=== PATIENT | female | born 1995 | race Caucasian/White ===

== ENCOUNTER 2019-01-26 22:40 | Emergency (ER) | payer SELFPAY ==
[~2019-01-26] VITALS: Ht 177.8 cm; Wt 68.0 kg
[2019-01-26] MEDS ORDERED: FAMOTIDINE 20 MG (PEPCID) TABLET PO STA (23:02)
--- NOTE | 2019-01-26 23:07 | ED Abdominal Pain ---
General Stated Complaint: SEVERE LOWER STOMACH PAIN Source of Information: Patient, Family Exam Limitations: No Limitations History of Present Illness Date Seen by Provider: Jan 26, 2019 Time Seen by Provider: 22:53 Initial Comments Patient presents to ER by private conveyance with chief complaint she's having severe lower abdominal pain right more than left started today around 4:00 in the afternoon after she ate ribs and potato salad. She said the pain started after she went to go to the bathroom immediately thereafter and had a bowel movement. She's not having any dysuria or burning. No discharge. She has nausea but no vomiting. No fevers or chills but she said her dad thought she felt feverish earlier when he touched her forehead. She has no recent history of trauma no history of surgeries or abdominal problems. No IBS or IBD. She says her stool was normal, formed. She has not taken anything for the pain or antacids. Allergies and Home Medications Allergies Coded Allergies: No Known Drug Allergies (Unverified , 01/26/19) Patient Home Medication List Home Medication List Reviewed: Yes Review of Systems Review of Systems Constitutional: No chills, No fever; malaise EENTM: No Blurred Vision, No Double Vision Respiratory: Denies Cough, Denies Shortness of Air Cardiovascular: Denies Chest Pain, Denies Edema Gastrointestinal: See HPI, Abdominal Pain, Nausea, Poor Fluid Intake, Vomiting Past [id number] Hx Patient Social History Alcohol Use: Denies Use Recreational Drug Use: No Smoking Status: Never a Smoker Recent Foreign Travel: No Contact w/Someone Who Travel: No Physical Exam Vital Signs Vital Signs - First Documented 01/26/19 22:45 Temp 98.2 Pulse 112 Resp 18 B/P (MAP) 122/84 (97) Pulse Ox 100 O2 Delivery Room Air Capillary Refill : Height/Weight/BMI Height: '" Weight: lbs. oz. kg; BMI Method: General Appearance: WD/WN, mild distress HEENT: PERRL/EOMI, pharynx normal Neck: non-tender, full range of motion Respiratory: lungs clear, normal breath sounds, no respiratory distress, no accessory muscle use Cardiovascular: normal peripheral pulses, regular rate, rhythm Peripheral Pulses: 2+ Dorsalis Pedis (R), 2+ Left Dors-Pedis (L), 2+ Radial Pulses (R), 2+ Radial Pulses (L) Gastrointestinal: normal bowel sounds (quiescent), tenderness (right lower quadrant and suprapubic), other (no rebound tenderness over McBurney's point nor Rovsing sign or psoas signs or any other mesenteric signs) Extremities: non-tender, normal inspection, normal capillary refill Progress/Results/Core Measures Results/Orders Lab Results Laboratory Tests Test 01/26/19 22:45 01/26/19 23:05 Range/Units Urine Color YELLOW Urine Clarity SL CLOUDY Urine pH 5.5 5-9 Urine Specific [place] >=1.030 1.016-1.022 Urine Protein NEGATIVE NEGATIVE Urine Glucose (UA) NEGATIVE NEGATIVE Urine Ketones TRACE H NEGATIVE Urine Nitrite NEGATIVE NEGATIVE Urine Bilirubin NEGATIVE NEGATIVE Urine Urobilinogen 1.0 NORMAL MG/DL Urine Leukocyte Esterase TRACE H NEGATIVE Urine RBC (Auto) 2+ H NEGATIVE Urine RBC 10-25 H /HPF Urine WBC 5-10 H /HPF Urine Squamous Epithelial Cells 25-50 H /HPF Urine Crystals NONE /LPF Urine Bacteria MODERATE H /HPF Urine Casts NONE /LPF Urine Mucus LARGE H /LPF Urine Culture Indicated YES White Blood Count 7.3 4.3-11.0 10^3/uL Red Blood Count 4.62 4.35-5.85 10^6/uL Hemoglobin 14.3 11.5-16.0 G/DL Hematocrit 43 35-52 % Mean Corpuscular Volume 93 80-99 FL Mean Corpuscular Hemoglobin 31 25-34 PG Mean Corpuscular Hemoglobin Concent 33 32-36 G/DL Red Cell Distribution Width 12.9 10.0-14.5 % Platelet Count 193 130-400 10^3/uL Mean Platelet Volume 10.9 H 7.4-10.4 FL Neutrophils (%) (Auto) 72 42-75 % Lymphocytes (%) (Auto) 15 12-44 % Monocytes (%) (Auto) 12 0-12 % Eosinophils (%) (Auto) 1 0-10 % Basophils (%) (Auto) 0 0-10 % Neutrophils # (Auto) 5.2 1.8-7.8 X 10^3 Lymphocytes # (Auto) 1.1 1.0-4.0 X 10^3 Monocytes # (Auto) 0.9 0.0-1.0 X 10^3 Eosinophils # (Auto) 0.0 0.0-0.3 10^3/uL Basophils # (Auto) 0.0 0.0-0.1 10^3/uL Sodium Level 139 135-145 MMOL/L Potassium Level 4.7 3.6-5.0 MMOL/L Chloride Level 98 98-107 MMOL/L Carbon Dioxide Level 23 21-32 MMOL/L Anion Gap 18 H 5-14 MMOL/L Blood Urea Nitrogen 12 7-18 MG/DL Creatinine 0.79 0.60-1.30 MG/DL Estimat Glomerular Filtration Rate > 60 BUN/Creatinine Ratio 15 Glucose Level 103 70-105 MG/DL Calcium Level 9.5 8.5-10.1 MG/DL Corrected Calcium 9.3 8.5-10.1 MG/DL Total Bilirubin 0.6 0.1-1.0 MG/DL Aspartate Amino Transf (AST/SGOT) 39 H 5-34 U/L Alanine Aminotransferase (ALT/SGPT) 32 0-55 U/L Alkaline Phosphatase 76 40-136 U/L Total Protein 7.6 6.4-8.2 GM/DL Albumin 4.2 3.2-4.5 GM/DL Lipase 28 8-78 U/L My Orders Orders - TIM LEBLANC Ua Culture If Indicated (01/26/19 22:50) Urine Bedside (01/26/19 22:50) Cbc With Automated Diff (01/26/19 23:02) Comprehensive Metabolic Panel (01/26/19 23:02) Lipase (01/26/19 23:02) Ondansetron Injection (Zofran Injectio (01/26/19 23:15) Lidocaine 2% Viscous 15 Ml (Xylocaine Vi (01/26/19 23:15) Famotidine Tablet (Pepcid Tablet) (01/26/19 23:02) Antacid Suspension (Mylanta Suspension (01/26/19 23:15) Ed Iv/Invasive Line Start (01/26/19 23:21) Lactated Ringers (Lr 1000 Ml Iv Solution (01/26/19 23:21) Ct Abd/Pelv W (Appendicitis) (01/26/19 23:21) Ketorolac Injection (Toradol Injection) (01/26/19 23:30) Famotidine Injection (Pepcid Injection) (01/26/19 23:30) Iohexol Injection (Omnipaque 350 Mg/Ml 1 (01/26/19 23:30) Received Contrast (Hold Metformin- Contr (01/26/19 23:30) Sodium Chloride Flush (Catheter Flush Sy (01/26/19 23:30) Ns (Ivpb) (Sodium Chloride 0.9% Ivpb Bag (01/26/19 23:30) Urine Culture (01/26/19 22:45) Medications Given in ED Current Medications Medications Dose Ordered Sig/Dustin Route Start Time Stop Time Status Last Admin Dose Admin Al Hydrox/Mg Hydrox/Simethicone 30 ml ONCE ONCE PO 01/26/19 23:15 01/26/19 23:16 DC 01/26/19 23:15 30 ML Iohexol 100 ml ONCE ONCE IV 01/26/19 23:30 01/26/19 23:31 DC 01/26/19 23:41 100 ML Ketorolac Tromethamine 30 mg ONCE ONCE IVP 01/26/19 23:30 01/26/19 23:31 DC 01/26/19 23:30 30 MG Lactated Ringer's 1,000 ml @ 0 mls/hr Q0M ONCE IV 01/26/19 23:21 01/26/19 23:23 DC 01/26/19 23:30 999 MLS/HR Lidocaine HCl 15 ml ONCE ONCE PO 01/26/19 23:15 01/26/19 23:16 DC 01/26/19 23:15 15 ML Ondansetron HCl 8 mg ONCE ONCE IVP 01/26/19 23:15 01/26/19 23:16 DC 01/26/19 23:15 8 MG Sodium Chloride 10 ml NEEDED PRN IV 01/26/19 23:30 01/26/19 23:41 10 ML Sodium Chloride 100 ml ONCE ONCE IV 01/26/19 23:30 01/26/19 23:31 DC 01/26/19 23:41 40 ML Vital Signs/I&O 01/26/19 22:45 Temp 98.2 Pulse 112 Resp 18 B/P (MAP) 122/84 (97) Pulse Ox 100 O2 Delivery Room Air Progress Progress Note #1: Time: 23:05 Progress Note Constipation versus appendix versus ovarian cyst 9 related pain. Ultrasound is not available but a CT scan would be reasonable if the GI cocktail does not help her. We'll continue to try and get an IV and use Zofran and Toradol. Labs, urinalysis, bedside test Negative. Progress Note #2: Time: 00:48 Progress Note After Toradol and Zofran IV her pain and nausea are much improved. Diagnostic Imaging Diagonstic Imaging: CT (with IV contrast) Plain Films/CT/US/NM/MRI: abdomen, pelvis Comments Appendix visualized and unremarkable. No acute processes in the abdomen or pelvis. Reviewed: Reviewed [place] Study, Reviewed by Me Departure Impression Primary Impression: Gastroenteritis and colitis, viral Disposition: 01 HOME, SELF-CARE Condition: Stable Departure-Patient Inst. Decision time for Depature: 00:44 Patient Instructions: Viral Gastroenteritis, Adult (DC) Add. Discharge Instructions: Stick to a liquid diet until your nausea vomiting and pain are better. Tylenol 1000 g every 8 hours in addition to ibuprofen 800 mg every 8 hours as needed for pain. Heating pads can be useful applied to the belly. If you have nausea use Zofran 1 tablet every 6 hours as needed. If you cannot control your pain nausea or start to have a fever then you should probably be seen by doctor that day or return to the ER for evaluation. If your symptoms persist for more than 3 days then you should follow-up with your primary care physician. Scripts Ondansetron (Ondansetron Odt) 4 Mg Tab.rapdis 4 MG PO Q6H PRN for NAUSEA/VOMITING, #8 TAB 0 Refills Prov: TIM LEBLANC 01/27/19 Work/School Note: Work Release Form Date Seen in the Emergency Department: Jan 27, 2019 Return to Work: Jan 29, 2019 Restrictions: No Restrictions TIM LEBLANC Jan 26, 2019 23:07
[2019-01-26] MEDS ORDERED: ANTACID SUSP 30 ML UDC (MYLANTA) PO ONE (23:15)
[2019-01-26] MEDS ORDERED: LIDOCAINE 2% VISCOUS 15 ML UDC PO ONE (23:15)
[2019-01-26] MEDS ORDERED: ONDANSETRON 4 MG/2 ML (SDV) Z0FRAN IVP ONE (23:15)
[2019-01-26] MEDS ORDERED: LACTATED RINGERS 1,000 ML IV ONE (23:21)
[2019-01-26 23:23] LABS: BASOPHILS % (AUTO) 0 % (0-10); EOSINOPHILS % (AUTO) 1 % (0-10); HEMATOCRIT 43 % (35-52); HEMOGLOBIN 14.3 G/DL (11.5-16.0); LYMPHOCYTES # (AUTO) 1.1 X 10^3 (1.0-4.0); LYMPHOCYTES % (AUTO) 15 % (12-44); MEAN CORPUSCULAR HEMOGLOBIN 31 PG (25-34); MEAN CORPUSCULAR HGB CONC 33 G/DL (32-36); MEAN CORPUSCULAR VOLUME 93 FL (80-99); MEAN PLATELET VOLUME 10.9 FL (7.4-10.4); MONOCYTES # (AUTO) 0.9 X 10^3 (0.0-1.0); MONOCYTES % (AUTO) 12 % (0-12); NEUTROPHILS # (AUTO) 5.2 X 10^3 (1.8-7.8); NEUTROPHILS % (AUTO) 72 % (42-75); PLATELET COUNT 193 10^3/uL (130-400); RED CELL DISTRIBUTION WIDTH 12.9 % (10.0-14.5); WHITE BLOOD COUNT 7.3 10^3/uL (4.3-11.0)
[2019-01-26 23:29] LABS: COLOR,URINE YELLOW
[2019-01-26 23:30] LABS: BACTERIA,URINE MODERATE /HPF; BILIRUBIN,URINE NEGATIVE (NEGATIVE); CLARITY,URINE SL CLOUDY; GLUCOSE, URINE (UA) NEGATIVE (NEGATIVE); KETONES,URINE TRACE (NEGATIVE); LEUKOCYTE ESTERASE ,URINE TRACE (NEGATIVE); NITRITE,URINE NEGATIVE (NEGATIVE); PH,URINE 5.5 (5-9); PROTEIN,URINE NEGATIVE (NEGATIVE)
[2019-01-26] MEDS ORDERED: KETOROLAC 30 MG/ML VIAL IVP ONE (23:30)
[2019-01-26] MEDS ORDERED: FAMOTIDINE 20MG/2ML IV (PEPCID) IVP ONE (23:30)
[2019-01-26] MEDS ORDERED: IOHEXOL 350 MG/ML 100 ML (OMNIPAQUE 350) VIAL IV ONE (23:30)
[2019-01-26] MEDS ORDERED: NS 100 ML (IVPB) BAG IV ONE (23:30)
[2019-01-26] MEDS ORDERED: HOLD METFORMIN - RECEIVED CONTRAST 20 ML VIAL IV SCH (23:30)
[2019-01-26] MEDS ORDERED: CATHETER FLUSH 10 ML SYR IV PRN (23:30)
[2019-01-26 23:31] LABS: SQUAMOUS EPITHELIAL CELL,UR 25-50 /HPF
[2019-01-26 23:41] LABS: SODIUM 139 MMOL/L (135-145)
[2019-01-26 23:42] LABS: ALANINE AMINOTRANSFERASE 32 U/L (0-55); ALBUMIN 4.2 GM/DL (3.2-4.5); ALKALINE PHOSPHATASE 76 U/L (40-136); BILIRUBIN,TOTAL 0.6 MG/DL (0.1-1.0); BUN/CREATININE RATIO 15; CALCIUM 9.5 MG/DL (8.5-10.1); CARBON DIOXIDE 23 MMOL/L (21-32); CHLORIDE 98 MMOL/L (98-107); CREATININE SERUM 0.79 MG/DL (0.60-1.30); GFR ESTIMATED > 60; GLUCOSE 103 MG/DL (70-105); POTASSIUM 4.7 MMOL/L (3.6-5.0); TOTAL PROTEIN 7.6 GM/DL (6.4-8.2)
[2019-01-26 23:43] LABS: LIPASE 28 U/L (8-78)
[2019-01-27] MEDS ORDERED: RX-ONDANSETRON 4 MG ODT (ZOFRAN) PPK #4 ONE (00:40)
[2019-01-27] MEDS ORDERED: ONDA4TAB11 PO (00:46)
[2019-01-27] MEDS ORDERED: RX-ONDANSETRON 4 MG ODT (ZOFRAN) PPK #4 PO STA (00:48)
[2019-01-27 00:54] VITALS: BP 105/62
--- NOTE | 2019-01-27 06:13 | Diagnostic Imaging Report ---
PROCEDURE: CT abdomen and pelvis with contrast, rule out appendicitis. TECHNIQUE: Multiple contiguous axial images were obtained through the abdomen and pelvis after the administration of intravenous contrast. INDICATION: Right lower quadrant abdominal pain. COMPARISON: None. FINDINGS: Included portions of lung bases are clear. CT abdomen: Small bowel loops are nondistended. Normal appendix is identified. Small spherical hypoenhancing renal foci are noted bilaterally and may be on the basis of small cysts, but are too small to adequately characterize. Otherwise, the kidneys, adrenal glands, spleen, pancreas, and liver have an unremarkable CT appearance. There is no loculated fluid collection, free fluid, nor free air within the abdomen. No abnormal mesenteric or retroperitoneal adenopathy is seen. Osseous structures show no acute abnormalities. CT pelvis: Urinary bladder is unopacified and minimally distended. No calculi are seen within urinary bladder. There is no loculated fluid collection, free fluid, nor free air within the pelvis. No abnormal lymph nodes are identified. Osseous structures show no acute abnormalities. IMPRESSION: 1. No acute abnormalities are seen within the abdomen or pelvis. Dictated by: Dictated on workstation # [id number]
[2019-01-29] MEDS ORDERED: CIPR-225 PO (15:44)
== END 2019-01-27 00:54 | disposition home or self-care (01) ==
LOC: ER FS 22:42
DX: A08.4 Viral intestinal infection, unspecified (principal)
CPT/HCPCS: 36415; 74177; 80053; 81000; 83690; 84703; 85025; 87077; 87088; 87186